=== PATIENT | female | born 1955 | race Caucasian/White ===

== ENCOUNTER 2016-12-29 06:20 | Day surgery (SDC) | payer MEDICARE ==
[~2016-12-29] VITALS: Ht 165.1 cm; Wt 81.8 kg
[~2016-12-29 06:20] MED LIST: ASPI81 PO; CETI10 PO; FISH300C2 PO; LEVO88TA21 PO; NITR0.4S SL; PRIN10TA PO; ROSU20 PO
[2016-12-29 07:05] VITALS: BP 170/80; PULSE 69; RESP 17; TEMP 98; O2SAT 97
[2016-12-29] MEDS ORDERED: ASPI1TAB69 PO (07:47)
[2016-12-29] MEDS ORDERED: ROSU1TAB10 PO (07:47)
[2016-12-29] MEDS ORDERED: LISI-515 PO (07:47)
[2016-12-29] MEDS ORDERED: METO50TA PO (07:47)
[2016-12-29] MEDS ORDERED: ZYRT10CA PO (07:47)
[2016-12-29] MEDS ORDERED: CALC1TAB87 PO (07:47)
[2016-12-29] MEDS ORDERED: NITR0.4S SL (07:47)
[2016-12-29] MEDS ORDERED: VITA500030 CHEW (07:47)
[2016-12-29] MEDS ORDERED: LEVO125T4 PO (07:47)
[2016-12-29] MEDS ORDERED: IOHEXOL 350 MG/ML 100 ML BTL (for Cath Lab) OTHER ONE (08:31)
[2016-12-29] MEDS ORDERED: NITROGLYCERIN INJ 5 ML ONE (08:33)
[2016-12-29] MEDS ORDERED: HEPARIN-NS/PF INJ 500 ML ONE (08:33)
[2016-12-29] MEDS ORDERED: MIDAZOLAM HCL 2 MG/2 ML VIAL ONE (08:36)
[2016-12-29] MEDS ORDERED: BACITRACIN OINT 0.9 GM PKT TOP ONE (09:30)
[2016-12-29] MEDS ORDERED: LIDOCAINE HCL 1% 50 ML VIAL INFIL PRN (09:30)
[2016-12-29] MEDS ORDERED: ONDANSETRON HCL 4 MG/2 ML VIAL IV PRN (09:30)
[2016-12-29] MEDS ORDERED: MISC INFORMATION XX ONE (09:30)
[2016-12-29] MEDS ORDERED: LORazepam 2 MG/ML VIAL IV PRN (09:30)
[2016-12-29] MEDS ORDERED: METOCLOPRAMIDE HCL 10 MG/2 ML VIAL IV PRN (09:30)
[2016-12-29] MEDS ORDERED: ATROPINE SULFATE 1 MG/ML VIAL IV PRN (09:30)
[2016-12-29] MEDS ORDERED: SODIUM CHLOR 0.9% 250 ML INJ 250 ML IV PRN (09:30)
[2016-12-29] MEDS ORDERED: oxyCODONE/ACETAMINOPHEN 5 MG/325 MG TAB PO PRN ×2 (09:30)
[2016-12-29] MEDS ORDERED: ISOS30TA3 PO (09:32)
--- NOTE | 2016-12-29 09:49 | MA ---
cc: LUIS FORD M.D., STEPHEN DATE 12/29/2016 PROCEDURE PERFORMED 1. Fluoroscopy with interpretation 2. Left heart catheterization 3. Coronary angiography 4. Coronary bypass graft angiography METHOD The risks and benefits were discussed with the patient. The patient understood and consented to the procedure. The patient brought into the catheterization lab, placed on the catheterization table. The right groin was prepped and draped in a sterile fashion. The right groin was anesthetized with 2% lidocaine. The right common femoral artery was cannulated and a 5-Vietnamese 11 cm sheath was placed without difficulty. LEFT HEART CATHETERIZATION A 5-Vietnamese JR-4 catheter was advanced across aortic valve without difficulty. Intraventricular hemodynamics measured at 100/10 mmHg. CORONARY ANGIOGRAPHY 1. Left main coronary is angiographically normal. 2. The left anterior descending coronary has a stent present in the proximal segment with minor luminal irregularities with 20-30% in-stent restenosis. There is a smaller caliber size diagonal branch at the distal stent margin at a 90 degree bifurcation. The proximal segment has about a 50% stenosis present. There is also a second diagonal branch which is small to moderate caliber size and has a tubular 50% stenosis present. 3. Left anterior descending coronary artery is occluded in the mid to distal segment. 4. Left circumflex coronary artery is smaller caliber size gives rise to an obtuse marginal branch which is widely patent. 5. The right coronary is a dominant vessel giving rise to a posterior descending branch. Right coronary is also smaller caliber size and angiographically normal. CORONARY BYPASS GRAFT ANGIOGRAPHY 1. Left internal mammary to the left anterior descending coronary is widely patent. 2. Left internal mammary has a stent at the coronary anastomosis which has mild in-stent restenosis about 20-30%. CONCLUSION 1. Mild to moderate branch vessel coronary artery disease involving two diagonal branches. 2. Widely patent left internal mammary to left anterior descending coronary artery. 3. Patent proximal left anterior descending coronary stenting and patent stent at the left internal mammary to left anterior descending coronary anastomosis. PLAN Given the smaller caliber size diagonal branches and moderate disease without high-grade obstruction, we will manage her symptoms medically. We will add a long-acting nitrate. The sheath will be removed with manual hemostasis. MD BOSTON Johns/THOMAS Whitman: 12/29/2016/9:36 AM /9:44 AM
== END 2016-12-29 14:53 | disposition home or self-care (01) ==
LOC: HDIC 06:20 → HDOC 06:20
PROVIDERS: ATTEND Internal Medicine
DX: I25.10 Atherosclerotic heart disease of native coronary artery without angina pectoris (principal); I10 Essential (primary) hypertension; E78.5 Hyperlipidemia, unspecified; Z95.1 Presence of aortocoronary bypass graft
CPT/HCPCS: 86850; 86900; 86901; 93454; C1769; C1893; J1644; J2250; J3010; Q9967